=== PATIENT | male | born 1990 | race Caucasian/White ===

== ENCOUNTER 2019-01-21 21:02 | Emergency (ER) | payer SELFPAY ==
[~2019-01-21] VITALS: Ht 180.3 cm; Wt 77.0 kg
[2019-01-21 23:59] VITALS: BP 134/82
== END 2019-01-22 | disposition home or self-care (01) ==
LOC: ER 21:02
DX: I10 Essential (primary) hypertension (principal); R20.0 Anesthesia of skin; J45.909 Unspecified asthma, uncomplicated; Z87.891 Personal history of nicotine dependence
CPT/HCPCS: 93005; 99283; Z7610